=== PATIENT | female | born 1955 | race Caucasian/White ===

== ENCOUNTER 2016-10-06 12:53 | Inpatient (IN) ==
[2016-10-06] MEDS ORDERED: NALOXONE HCL 0.4 MG/ML VIAL IV PRN (14:41)
[2016-10-06] MEDS ORDERED: ACETAMINOPHEN 325 MG TABLET PO PRN (14:41)
[2016-10-06] MEDS ORDERED: HYDROcodone/APAP 5/325MG TABLET PO PRN (14:41)
[2016-10-06] MEDS ORDERED: ONDANSETRON 4 MG/2 ML VIAL IV PRN (14:41)
[2016-10-06] MEDS ORDERED: MAGNESIUM HYDROXIDE 30 ML ORAL.SUSP PO PRN (14:41)
[2016-10-06] MEDS ORDERED: ALBUTEROL SULFATE 2.5 MG/3 ML NEBULIZER NEB PRN (14:41)
[2016-10-06] MEDS ORDERED: VANCOMYCIN PER PHARMACY IV ONE (14:53)
--- NOTE | 2016-10-06 14:56 | Internal Med History&Physical ---
Medical - H&P: HPI Patient information: Note initiated : 10/06/16 at 2:56 pm Service Date, if different from initiated Date: [] Patient: Chaparrita Campos 61 y/o F admitted on 10/06/16 for Aspiration pneumonia and fever. History of present illness: Ms. Campos is a 61 year old female with a history of C4-C6 quadriplegia, sleep apnea, and COPD. She presented to the emergency room in [place], [place] with chest congestion and weakness yesterday.they note that she had a history of respiratory failure in June of 2016 with respiratory failure and pneumonia. She denies fever or chills or significant sputum production. she tells me that about 3 days ago she developed fever and chest congestion and cough at home. She presented to the emergency room negative for last apparently. She has been having chills and headache. She says her cough is mostly nonproductive but does sound moist, and she can feel her chest rattling. She does not feel particularly short of breath. She has noticed some increased abdominal gas lately but that she still has a bowel movement every 3 or 4 days. She otherwise denies new ear or eye symptoms, sore throat, chest pain or palpitations, abdominal pain, nausea or vomiting, diarrhea or constipation, or dysuria. She does have a suprapubic catheter in place.She has minimal sensation below her breasts. past medical history: C4 quadriplegia, BrownSicard syndrome cOPD Neurogenic bladder with suprapubic catheter next line history of chronic UTI History of obstructive sleep apnea History of anterior cervical fusion History of tobacco abuse current medications: from [facility]; Albuterol nebs every 4 hours, IV fluids, mag sulfate IV, bisacodyl, polyethylene glycol, vancomycin 1000 mgevery 12, Lovenox 40 mg every 24 hours, Levaquin 750 mg daily, Zofran every 4 hours when necessary Home medications: Advair 250/50 one inhalation twice a day azo urinary relief 200 mg twice a day Baclofen 2 mg by mouth twice a day Baclofen 350 g intrathecaldaily Flexeril 10 mg3 times a daywhen necessary Docusate sodium 100 mg by mouth daily when necessary constipation Fiber supplement daily Gabapentin 300 mg 3 times a day Multivitamin daily Oxybutynin 5 mg every 12 hours OxyContin ER 20 mg daily Oxycodone 10 mg every 6 hours Proventil 2 puffs every 4-6 hours when necessary Seroquel 25 mg daily at bedtime when necessary insomnia Senna 15 mg twice a day when necessary Valium 5 mg every 8 hours when necessary anxiety Venlafaxine 225 mg every morning Allergies:No known drug allergies. Family history:Mother quite young from uterine cancer. Father with sudden , probably cardiac . Social history: The patient lives in [facility] with her . She smokes one pack of cigarettes per day. she has been smoking on and off since the age of 17, but says she has quit for long periods ; She just resumed again about 10 years ago... She does not use alcohol. She does not use drugs. Medical - H&P: Meds Home Medications Medication Instructions Recorded Confirmed Type Gabapentin [Neurontin] 800 mg PO TID 10/06/16 10/06/16 History oxyCODONE 1 mg PO ONCE 10/06/16 10/06/16 History oxyCODONE [OxyCONTIN] 10 mg PO QIDP 10/06/16 10/06/16 History Allergies Allergy/AdvReac Type Severity Reaction Status Date / Time No Known Drug Allergies Allergy Unverified 10/06/16 14:11 Medical - H&P: Exam - Constitutional Vitals: Temp Pulse Resp BP Pulse Ox 99.8 F H 85 20 107/68 93 10/06/16 14:54 10/06/16 13:40 10/06/16 14:54 10/06/16 14:54 10/06/16 14:54 Exam: on exam, she is a well-developed well-nourished female in no acute distress. Head: Normocephalic, atraumatic. Eyes: PERRLA, EOMI, anicteric. Ears: TMs and canals are clear. Pharynx: Mucosa is normal in appearance. She is missing numerous teeth and has cavities. She notes these are due to chronic dry mouth syndrome. Neck:Supple, without lymphadenopathy, JVD, thyromegaly, or bruits. Cardiac exam:Regular rate and rhythm with normal S1 and S2, no murmurs, rubs, gallops are noted. Lungs: She has somewhat decreased breath sounds throughout, with bilateral scattered rhonchi, without significant wheezing. Abdomen: Is soft and nontender. Bowel sounds are active. There is a suprapubic catheter in place, draining clear yellow urine. Extremities: Show no significant edema, cyanosis, clubbing. Her left hip ischial area does have a small open area which is draining what appears to be purulent discharge onto the dressing. Neurologic: The patient is paraplegic. Otherwise she is alert and oriented, calm and cooperative. She has good use of her arms. Skin exam: Does not show any obvious rashes or other worrisome lesions, other than as noted above. Medical - H&P: Reslt - Labs CBC & Chem 7: 10/06/16 15:14 10/06/16 15:14 Labs: labs done in [place] :: CBC shows white blood cell count of 6.7 thousand, hemoglobin 8.8, hematocrit 27.9, platelet count 140,000Differential shows 84% granulocytes Chemistry panel was essentially normal Urinalysis showed pH of 6.5, 100 leukocytes, negative nitrites, 6-10 white blood cells, moderate bacteria X-ray of the pelvis shows a soft tissue irregularity over the left lateral hip consistent with deep decubitus ulcer, but without evidence of osteomyelitis. There is decreased bone mineral density. Chest x-ray, October 04: There is right hemithorax opacification, stable when compared with June 04, 2016. There isleft to right shift. Esophagram from June 05: Shows aspiration with swallowing. Mild dysmotility. Trace GERD. Medical - H&P: A/P (1) Aspiration pneumonia Current visit: Yes Status: Acute (2) Decubitus ulcer, hip, left, unstageable Current visit: Yes Status: Chronic (3) Chronic pain due to injury Current visit: Yes Status: Chronic (4) COPD (chronic obstructive pulmonary disease) Current visit: Yes Status: Chronic (5) Normocytic anemia Current visit: Yes Status: Chronic 31. This patient presents with chest congestion and cough, and chronically abnormal chest x-ray, with concerns for pneumonia. She has known issues of aspiration, so there is concern for aspiration pneumonia. -she is now admitted for IV antibiotics, oxygen, bronchodilators, pulmonary toilet. -we will cover her with Zosyn for typical organisms and anaerobes related to aspiration. #2. Left hip decubitus ulcer. -wound care consult. -advised vancomycin, pending culture results. 33. Recent hypokalemia and hypomagnesemia. -Recheck labs. #4. History of COPD and reactive airways disease. -Discontinue smoking. -Continue albuterol and ipratropium nebulizers. -Add steroids if needed. #5. Tobacco abuse.-counseled about discontinuation. #6. History of normocytic anemia. -Recheck labs. #7. CODE STATUS: #8. DVT prophylaxis: Subcutaneous heparin. so far today, approximately 60 minutes has been spent reviewing this patient's records, interviewing and examining her, and writing orders. Medical - H&P: Qual - Stroke Symptom Onset Unknown: No - VTE Deep Vein Thrombosis/Pulmonary Embolism Present on Admission: No
[2016-10-06] MEDS ORDERED: BACLOFEN IJ ONE (16:00)
[2016-10-06 16:21] LABS: ALT/SGPT 11 U/l (0-40); Albumin 3.2 gm/dL (3.2-5.2); Albumin/Globulin Ratio 1.2 (1.0-2.3); Alkaline Phosphatase 103 U/L (39-117); Blood Urea Nitrogen 6 mg/dl (6-20); C-Reactive Protein 13.7 mg/dl (0.0-0.8)
[2016-10-06] MEDS ORDERED: DOCUSATE SODIUM 100 MG CAPSULE PO PRN (16:21)
[2016-10-06] MEDS ORDERED: DIAZEPAM 5 MG TABLET PO PRN (16:25)
--- NOTE | 2016-10-06 16:26 | Operative Note ---
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 POSTOPERATIVE DIAGNOSIS: Spasticity secondary to quadriplegia. PROCEDURE: Refill [employer] intrathecal pump with baclofen. SURGEON: José Luis Braxton M.D. ANESTHESIA: Local only. DESCRIPTION OF PROCEDURE: The pump site was prepped with Betadine. Complete sterile field was used throughout. A 22-gauge Hernandez needle was placed through the central port and 0.5 mL of fluid was aspirated and discarded. Next, 40 mL of baclofen 0.5 mg/mm was injected into the pump. Next, telemetry was set to reflect a 40 mL reservoir volume, and she was continued to run on her same variable infusion pattern that was preset for a total of 83 mcg of baclofen q.24h. Her low reservoir alarm date is 05/22/17. LES:[email or web address] Job ID: [id number] Doc ID: [id number] José Luis Braxton MD
[2016-10-06 16:38] LABS: Basophils # (Auto) 0 K/mcL (0.0-0.3); Basophils % (Auto) 0.3 % (0.0-2.0); Eosinophils # (Auto) 0 K/mcL (0.0-0.7); Eosinophils % (Auto) 0.1 % (0.0-7.0); Granulocytes % (Auto) 73.1 % (38.0-78.0); Lymphocytes # (Auto) 0.8 K/mcL (1.5-4.8); Lymphocytes % (Auto) 20.4 % (15.5-49.0); Mean Cell Volume 91.1 fL (80.0-100.0); Mean Corpuscular HGB Conc 31.6 g/dL (31.0-36.0); Mean Corpuscular Hemoglobin 28.8 pg (26.0-34.0); Monocytes # (Auto) 0.2 K/mcL (0.1-0.9); Monocytes % (Auto) 6.1 % (1.0-9.0); Platelet Count 141 K/mcL (140-440); RBC 2.93 M/mcL (4.00-5.20); Red Cell Distribution Width 15.3 % (11.5-14.5)
[2016-10-06 16:54] LABS: Erythrocyte Sedimentation Rate 56 mm/hr (0-20)
[2016-10-06] MEDS: PIPERACILLIN SODIUM/TAZOBACTAM 3.375 GM in DEXTROSE 5% IN WATER 50 ML IV SCH ×2 (18:03→19:26)
[2016-10-06] MEDS: oxyCODONE HCL 5 MG TABLET PO PRN (19:00)
[2016-10-06] MEDS: IPRATROPIUM/ALBUTEROL 3 ML AMPUL.NEB NEB SCH (19:30)
[2016-10-06] MEDS ORDERED: QUEtiapine 25 MG TABLET PO PRN (21:00)
[2016-10-06] MEDS: VANCOMYCIN 1,000 MG in 0.9 % SODIUM CHLORIDE 250 ML IV SCH (21:06)
[2016-10-06] MEDS: POTASSIUM CHLORIDE 20 MEQ in 0.45 % SODIUM CHLORIDE 1,000 ML IV SCH (21:07)
[2016-10-06] MEDS: GABAPENTIN 300 MG CAPSULE PO SCH (21:07)
[2016-10-06] MEDS: HEPARIN 5,000 UNIT/ML VIAL SQ SCH (21:07)
[2016-10-06] MEDS: OXYBUTYNIN CHLORIDE 5 MG TABLET PO SCH (21:07)
[2016-10-06] MEDS: BACLOFEN 10 MG TABLET PO SCH (21:08)
[2016-10-06] MEDS: 0.9 % SODIUM CHLORIDE 10 ML SYRINGE IV SCH (22:28)
[2016-10-07] MEDS: PIPERACILLIN SODIUM/TAZOBACTAM 3.375 GM in DEXTROSE 5% IN WATER 50 ML IV SCH ×5 (00:14→23:40)
[2016-10-07] MEDS: IPRATROPIUM/ALBUTEROL 3 ML AMPUL.NEB NEB SCH ×4 (01:07→19:10)
[2016-10-07] MEDS: POTASSIUM CHLORIDE 20 MEQ in 0.45 % SODIUM CHLORIDE 1,000 ML IV SCH ×3 (05:32→22:17)
[2016-10-07] MEDS: 0.9 % SODIUM CHLORIDE 10 ML SYRINGE IV SCH ×4 (05:32→22:17)
[2016-10-07] MEDS: VANCOMYCIN 1,000 MG in 0.9 % SODIUM CHLORIDE 250 ML IV SCH ×2 (06:06→18:30)
[2016-10-07 06:45] LABS: ALT/SGPT 11 U/l (0-40); Albumin 3.6 gm/dL (3.2-5.2); Albumin/Globulin Ratio 1.2 (1.0-2.3); Alkaline Phosphatase 112 U/L (39-117); Bilirubin,Direct < 0.2 mg/dL (0.0-0.3); Blood Urea Nitrogen 4 mg/dl (6-20); Gamma Glutamyl Transpeptidase 83 U/L (5-36); Magnesium 1.9 mg/dL (1.6-2.5); Phosphorous 2.1 mg/dL (2.7-4.5); Uric Acid 2.4 mg/dL (2.5-8.0)
[2016-10-07 07:32] LABS: Basophils # (Auto) 0 K/mcL (0.0-0.3); Basophils % (Auto) 0.4 % (0.0-2.0); Eosinophils # (Auto) 0 K/mcL (0.0-0.7); Eosinophils % (Auto) 0.4 % (0.0-7.0); Lymphocytes # (Auto) 1.3 K/mcL (1.5-4.8); Lymphocytes % (Auto) 42.7 % (15.5-49.0); Mean Cell Volume 91.6 fL (80.0-100.0); Mean Corpuscular HGB Conc 31.6 g/dL (31.0-36.0); Mean Corpuscular Hemoglobin 28.9 pg (26.0-34.0); Monocytes # (Auto) 0.2 K/mcL (0.1-0.9); Monocytes % (Auto) 6.5 % (1.0-9.0); Platelet Count 141 K/mcL (140-440); RBC 3.36 M/mcL (4.00-5.20); Red Cell Distribution Width 15.6 % (11.5-14.5)
[2016-10-07] MEDS: oxyCODONE 20 MG TAB.ER.12H PO SCH (09:35)
[2016-10-07] MEDS: CYCLOBENZAPRINE 10 MG TABLET PO PRN (09:35)
[2016-10-07] MEDS: GABAPENTIN 300 MG CAPSULE PO SCH ×3 (09:36→20:52)
[2016-10-07] MEDS: VENLAFAXINE 75 MG CAP.XL.24H PO SCH (09:36)
[2016-10-07] MEDS: OXYBUTYNIN CHLORIDE 5 MG TABLET PO SCH ×2 (09:36→20:52)
[2016-10-07] MEDS: HEPARIN 5,000 UNIT/ML VIAL SQ SCH ×2 (09:37→20:52)
[2016-10-07] MEDS: PSYLLIUM HUSK 6 GM PACKET PO SCH (09:38)
--- NOTE | 2016-10-07 14:35 | Internal Med Progress Note ---
Medical - PN: Subj Patient information: Note initiated : 10/07/16 at 2:34 pm Service Date, if different from initiated Date: [] Patient: Chaparrita Campos 61 y/o F admitted on 10/06/16 for Aspiration pneumonia and fever. Chief Complaint: [] Interval history: October 06, 2016:History of present illness: Ms. Campos is a 61 year old female with a history of C4-C6 quadriplegia, sleep apnea, and COPD. She presented to the emergency room in [place], [place] with chest congestion and weakness yesterday.they note that she had a history of respiratory failure in June of 2016 with respiratory failure and pneumonia. She denies fever or chills or significant sputum production. she tells me that about 3 days ago she developed fever and chest congestion and cough at home. She presented to the emergency room negative for last apparently. She has been having chills and headache. She says her cough is mostly nonproductive but does sound moist, and she can feel her chest rattling. She does not feel particularly short of breath. She has noticed some increased abdominal gas lately but that she still has a bowel movement every 3 or 4 days. She otherwise denies new ear or eye symptoms, sore throat, chest pain or palpitations, abdominal pain, nausea or vomiting, diarrhea or constipation, or dysuria. She does have a suprapubic catheter in place.She has minimal sensation below her breasts. she was originally admitted in [facility], but sent here because her baclofen pump was getting ready to run out. October [id number]: today, the patient thinks she is doing better. She still has a fairly loosecough but denies current fever or chills. She is still requiring oxygen to maintain her O2 saturations. She tells me she does have oxygen at home , but does not have a nebulizer machine. She is wondering when she can go back home. Otherwise she denies chest pain or palpitations, sore throat abdominal pain nausea or vomiting, or diarrhea. - Constitutional Vitals: Vital Signs Temp Pulse Resp BP Pulse Ox 97.9 F 76 16 101/37 92 10/07/16 12:54 10/07/16 13:45 10/07/16 13:45 10/07/16 12:54 10/07/16 13:42 Period Temp Pulse Resp BP Sys/Caballero Pulse Ox Last 24 Hr 97.9 F-99.8 F 67-86 16-20 101-126/37-78 91-94 Intake and Output 10/07/16 10/07/16 10/07/16 05:59 13:59 21:59 Intake Total 2350 / 2350 1170 / 1170 800 / 800 Output Total 4250 / 4250 Balance -1900 / -1900 1170 / 1170 800 / 800 Weight 169 lb Patient Weight 10/08/16 05:59 Weight 169 lb Intake & Output: Intake & Output 10/07/16 10/07/16 10/07/16 05:59 13:59 21:59 Intake Total 2350 / 2350 1170 / 1170 800 / 800 Output Total 4250 / 4250 Balance -1900 / -1900 1170 / 1170 800 / 800 Weight 169 lb Intake: IV 300 / 300 1060 / 1060 Dextrose 5% in Water 50 50 / 50 50 / 50 ml @ 100 mls/hr IV Q6 TONY with Zosyn 3.375 gm Rx#: [id number] Potassium Chloride 20 Meq 1010 / 1010 In Sodium Chloride 0.45% 1,000 ml @ 100 mls/hr IV .Q10H6M TONY Rx#: [id number] Sodium Chloride 0.9% 250 250 / 250 ml @ 250 mls/hr IV Q12H TONY with Vancomycin 1,000 mg Rx#:[id number] Oral 2050 / 2050 110 / 110 800 / 800 Output: Urine Catheter Amount 4250 / 4250 Other: Meal Lunch Percent of Meal Consumed 50% Feeding Ability Independent # Bowel Movements 1 Exam: n exam, she is a well-developed well-nourished woman. She hasn't no acute distress. francis is supple without obvious lymphadenopathy or JVD. cardiac exam shows regular rate and rhythm. Lungs have somewhat decreased breath sounds, but there are crackles and wheezes noted mainly in the right base, and otherwise her breath sounds are distant and coarse throughout. Abdomen is soft and nontender. Extremities show no edema. Medical - PN: Obj Da - Labs CBC & Chem 7: 10/07/16 04:25 10/07/16 04:25 Labs: Abnormal Lab Results 10/07/16 10/07/16 10/06/16 04:25 04:25 15:14 WBC 3.1 L RBC 3.36 L Hgb 9.7 L Hct 30.8 L RDW 15.6 H Gran # 1.6 L Lymph # 1.3 L ESR Potassium 3.2 L BUN 4 L Creatinine 0.4 L 0.4 L Uric Acid 2.4 L Calcium 8.5 L 8.0 L Phosphorus 2.1 L GGT 83 H Lactate Dehydrogenase 268 H C-Reactive Protein 13.7 H Total Protein 5.8 L 10/06/16 15:14 WBC 4.1 L RBC 2.93 L Hgb 8.4 L Hct 26.7 L RDW 15.3 H Gran # Lymph # 0.8 L ESR 56 H Potassium BUN Creatinine Uric Acid Calcium Phosphorus GGT Lactate Dehydrogenase C-Reactive Protein Total Protein labs done in [place] :: CBC shows white blood cell count of 6.7 thousand, hemoglobin 8.8, hematocrit 27.9, platelet count 140,000Differential shows 84% granulocytes Chemistry panel was essentially normal Urinalysis showed pH of 6.5, 100 leukocytes, negative nitrites, 6-10 white blood cells, moderate bacteria X-ray of the pelvis shows a soft tissue irregularity over the left lateral hip consistent with deep decubitus ulcer, but without evidence of osteomyelitis. There is decreased bone mineral density. Chest x-ray, October 04: There is right hemithorax opacification, stable when compared with June 04, 2016. There is left to right shift. Esophagram from June 05: Shows aspiration with swallowing. Mild dysmotility. Trace GERD. Meds: Medications Acetaminophen (Tylenol) 650 mg PO Q6HP PRN PRN Reason: PAIN/FEVER > 101 Acetaminophen/Hydrocodone Bitart ([place] 5/325mg) 1 tab PO Q4HP PRN PRN Reason: Pain Albuterol Sulfate (Ventolin) 2.5 mg NEB Q2HP PRN PRN Reason: Shortness Of Breath Albuterol/Ipratropium (Duoneb) 3 ml NEB Q6HRT [facility] Last Admin: 10/07/16 13:40 Dose: 3 ml Baclofen (Lioresal) 50 mg PO TID [facility] Last Admin: 10/06/16 21:08 Dose: 50 mg Cyclobenzaprine HCl (Flexeril) 10 mg PO TID PRN PRN Reason: Muscle Spasm Last Admin: 10/07/16 09:35 Dose: 10 mg Diazepam (Valium) 5 mg PO TIDP PRN PRN Reason: Muscle Spasm Docusate Sodium (Colace) 100 mg PO BID PRN PRN Reason: Constipation Gabapentin (Neurontin) 300 mg PO TID [facility] Last Admin: 10/07/16 09:36 Dose: 300 mg Heparin Sodium (Porcine) (Heparin) 5,000 unit SQ Q12 [facility] Last Admin: 10/07/16 09:37 Dose: 5,000 unit Piperacillin Sod/Tazobactam (Sod 3.375 gm/ Dextrose) 50 mls @ 100 mls/hr IV Q6 [facility] Last Admin: 10/07/16 12:44 Dose: 100 mls/hr Potassium Chloride 20 meq/ (Sodium Chloride) 1,010 mls @ 100 mls/hr IV .Q10H6M [facility] Last Admin: 10/07/16 12:36 Dose: 100 mls/hr Vancomycin HCl 1,000 mg/ (Sodium Chloride) 250 mls @ 250 mls/hr IV Q12H [facility] Last Admin: 10/07/16 06:06 Dose: 250 mls/hr Magnesium Hydroxide (Milk Of Magnesia) 30 ml PO DAILYP PRN PRN Reason: Constipation Naloxone HCl (Narcan) 0.1 mg IV Q2MIN PRN PRN Reason: Opiate Reversal Ondansetron HCl (Zofran) 4 mg IV Q6HP PRN PRN Reason: Nausea And Vomiting Oxybutynin Chloride (Ditropan) 5 mg PO BID [facility] Last Admin: 10/07/16 09:36 Dose: 5 mg Oxycodone HCl (Oxycontin) 20 mg PO DAILY [facility] Last Admin: 10/07/16 09:35 Dose: 20 mg Oxycodone HCl (Roxicodone) 10 mg PO Q6HP PRN PRN Reason: Pain Last Admin: 10/06/16 19:00 Dose: 10 mg Psyllium Hydrophilic Mucilloid (Metamucil) 6 gm PO DAILY [facility] Last Admin: 10/07/16 09:38 Dose: Not Given Quetiapine Fumarate (Seroquel) 25 mg PO HS PRN PRN Reason: Sleep Sodium Chloride (Saline Flush) 10 ml IV Q8 [facility] Last Admin: 10/07/16 05:32 Dose: Not Given Venlafaxine HCl (Effexor Xr) 225 mg PO DAILY TONY Last Admin: 10/07/16 09:36 Dose: 225 mg Medical - PN: A/P - Time Spent With Patient Total time spent is greater than 50% in coordination of care (as documented) at patient's floor/unit and/or counseling patient: (1) Aspiration pneumonia Status: Acute Current Visit: Yes (2) Decubitus ulcer, hip, left, unstageable Status: Chronic Current Visit: Yes (3) Chronic pain due to injury Status: Chronic Current Visit: Yes (4) COPD (chronic obstructive pulmonary disease) Status: Chronic Current Visit: Yes (5) Normocytic anemia Status: Chronic Current Visit: Yes - Narrative A/P Narrative: Current visit: Yes Status: Chronic #1. This patient presents with chest congestion and cough, and chronically abnormal chest x-ray, with concerns for pneumonia. She has known issues of aspiration, so there is concern for aspiration pneumonia. --she is now admitted for IV antibiotics, oxygen, bronchodilators, pulmonary toilet. -we will cover her with Zosyn for typical organisms and anaerobes related to aspiration. -clinically she is improving, but still seems to require oxygen and nebulizer treatment. Her CBC indicates that she is on the neutropenic side, for uncertain reasons. She still has a low-grade temperature this morning. -We'll see how she is doing tomorrow. If she seems to be showing progress, we could consider sending her home with nebulizer treatments, oxygen, and oral antibiotics. #2. Left hip decubitus ulcer. -wound care consult. -advised vancomycin, pending culture results. #3. Recent hypokalemia and hypomagnesemia. resolved.. #4. History of COPD and reactive airways disease. -Discontinue smoking. -Continue albuterol and ipratropium nebulizers. -Add steroids if needed. #5. Tobacco abuse.-counseled about discontinuation. #6. History of normocytic anemia. -Recheck labs. #7. CODE STATUS: Limited code.she does not wish to be intubated. #8. DVT prophylaxis: Subcutaneous heparin. Approximately 30 minutes was spent today, reviewing test results, interviewing and examining her, exploring options for discharge treatment as well as travel home, and writing orders. Medical - PN: Qual - Stroke Symptom Onset Unknown: No - VTE Deep Vein Thrombosis/Pulmonary Embolism Present on Admission: No
[2016-10-07] MEDS: BACLOFEN 10 MG TABLET PO SCH ×3 (14:39→20:52)
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
[2016-10-07] MEDS: oxyCODONE HCL 5 MG TABLET PO PRN (17:48)
[2016-10-08] MEDS: IPRATROPIUM/ALBUTEROL 3 ML AMPUL.NEB NEB SCH ×5 (00:47→19:29)
[2016-10-08] MEDS: POTASSIUM CHLORIDE 20 MEQ in 0.45 % SODIUM CHLORIDE 1,000 ML IV SCH ×4 (02:25→16:39)
[2016-10-08] MEDS: 0.9 % SODIUM CHLORIDE 10 ML SYRINGE IV SCH ×3 (05:39→20:26)
[2016-10-08] MEDS: PIPERACILLIN SODIUM/TAZOBACTAM 3.375 GM in DEXTROSE 5% IN WATER 50 ML IV SCH ×4 (05:47→23:53)
[2016-10-08 06:04] LABS: Basophils # (Auto) 0 K/mcL (0.0-0.3); Basophils % (Auto) 0.4 % (0.0-2.0); Eosinophils # (Auto) 0 K/mcL (0.0-0.7); Eosinophils % (Auto) 1.2 % (0.0-7.0); Granulocytes % (Auto) 50.4 % (38.0-78.0); Lymphocytes # (Auto) 1.2 K/mcL (1.5-4.8); Lymphocytes % (Auto) 39.5 % (15.5-49.0); Mean Cell Volume 91.1 fL (80.0-100.0); Mean Corpuscular HGB Conc 31.2 g/dL (31.0-36.0); Mean Corpuscular Hemoglobin 28.4 pg (26.0-34.0); Monocytes # (Auto) 0.3 K/mcL (0.1-0.9); Monocytes % (Auto) 8.5 % (1.0-9.0); Platelet Count 148 K/mcL (140-440); RBC 3.06 M/mcL (4.00-5.20); Red Cell Distribution Width 15.6 % (11.5-14.5)
[2016-10-08 06:49] LABS: ALT/SGPT 12 U/l (0-40); Albumin 3.2 gm/dL (3.2-5.2); Albumin/Globulin Ratio 1.1 (1.0-2.3); Alkaline Phosphatase 90 U/L (39-117); Bilirubin,Direct < 0.2 mg/dL (0.0-0.3); Blood Urea Nitrogen 3 mg/dl (6-20); Gamma Glutamyl Transpeptidase 69 U/L (5-36); Magnesium 1.7 mg/dL (1.6-2.5); Phosphorous 2.3 mg/dL (2.7-4.5); Uric Acid 1.9 mg/dL (2.5-8.0)
[2016-10-08] MEDS: VANCOMYCIN 1,000 MG in 0.9 % SODIUM CHLORIDE 250 ML IV SCH ×2 (06:58→18:59)
[2016-10-08] MEDS: GABAPENTIN 300 MG CAPSULE PO SCH ×4 (09:00→20:22)
[2016-10-08] MEDS: oxyCODONE 20 MG TAB.ER.12H PO SCH ×2 (09:00→11:35)
[2016-10-08] MEDS: BACLOFEN 10 MG TABLET PO SCH ×4 (09:00→20:22)
[2016-10-08] MEDS: PSYLLIUM HUSK 6 GM PACKET PO SCH (09:59)
[2016-10-08] MEDS: DOCUSATE SODIUM 100 MG CAPSULE PO PRN (11:36)
[2016-10-08] MEDS: VENLAFAXINE 75 MG CAP.XL.24H PO SCH (11:36)
[2016-10-08] MEDS: HEPARIN 5,000 UNIT/ML VIAL SQ SCH ×2 (11:37→20:22)
[2016-10-08] MEDS: OXYBUTYNIN CHLORIDE 5 MG TABLET PO SCH ×2 (11:37→20:22)
--- NOTE | 2016-10-08 11:55 | Internal Med Progress Note ---
Medical - PN: Subj Patient information: Note initiated : 10/08/16 at 11:55 am Service Date, if different from initiated Date: [] Patient: Chaparrita Campos 61 y/o F admitted on 10/06/16 for Aspiration pneumonia and fever. Chief Complaint: [] Interval history: October 06, 2016:History of present illness: Ms. Campos is a 61 year old female with a history of C4-C6 quadriplegia, sleep apnea, and COPD. She presented to the emergency room in [place], [place] with chest congestion and weakness yesterday.they note that she had a history of respiratory failure in June of 2016 with respiratory failure and pneumonia. She denies fever or chills or significant sputum production. she tells me that about 3 days ago she developed fever and chest congestion and cough at home. She presented to the emergency room negative for last apparently. She has been having chills and headache. She says her cough is mostly nonproductive but does sound moist, and she can feel her chest rattling. She does not feel particularly short of breath. She has noticed some increased abdominal gas lately but that she still has a bowel movement every 3 or 4 days. She otherwise denies new ear or eye symptoms, sore throat, chest pain or palpitations, abdominal pain, nausea or vomiting, diarrhea or constipation, or dysuria. She does have a suprapubic catheter in place.She has minimal sensation below her breasts. she was originally admitted in [facility], but sent here because her baclofen pump was getting ready to run out. October [id number]: today, the patient thinks she is doing better. She still has a fairly loosecough but denies current fever or chills. She is still requiring oxygen to maintain her O2 saturations. She tells me she does have oxygen at home , but does not have a nebulizer machine. She is wondering when she can go back home. Otherwise she denies chest pain or palpitations, sore throat abdominal pain nausea or vomiting, or diarrhea. October 08, 2016: during the night, the nurses say the patient had an episode where she was very difficult to arouse, and seemed to be drunk. She was calling out and pulled out her IV etc. She eventually settled down, but was quite groggy this morning. Her nurse and I went over her med list again with her today, and apparently her had text at her what he thought was her current list. Yesterday they had indicated she took baclofen 50 mg twice a day to 3 times a day but today's list says she takes baclofen 20 mg 5 times a day so we have probably giving her more than her usual. the patient initially stated she really would like to go home today,but does continue to cough and does not have a home nebulizer. Since we are not 100% certain that her confusion episode last night was related to baclofen, in addition to the fact that her lungs are not cleared yet, we all agreed it might be better for her to stay another day. otherwise, she denies fever or chills chest pain or palpitations. She continues to have a loose wet cough, which is not very productive. She does not feel particularly short of breath. She denies abdominal pain, nausea or vomiting or diarrhea. Suprapubic catheter continues to drain clear yellow urine. - Constitutional Vitals: Vital Signs Temp Pulse Resp BP Pulse Ox 101 F H 93 H 24 137/89 90 10/08/16 11:35 10/08/16 11:17 10/08/16 11:17 10/08/16 11:17 10/08/16 11:22 Period Temp Pulse Resp BP Sys/[place] Pulse Ox Last 24 Hr 97.9 F-101.5 F 71-93 16-24 94-137/37-89 90-96 Intake and Output 10/07/16 10/08/16 10/08/16 21:59 05:59 13:59 Intake Total 1999 450 / 450 Output Total 3500 / 3500 3250 / 3250 1974 Balance -1500 / -1500 -1230 / -1230 -1525 / -1525 Weight 170 lb Intake & Output: Intake & Output 10/07/16 10/08/16 10/08/16 21:59 05:59 13:59 Intake Total 1999 450 / 450 Output Total 3500 / 3500 3250 / 3250 1974 Balance -1500 / -1500 -1230 / -1230 -1525 / -1525 Weight 170 lb Intake: IV 300 / 300 1060 / 1060 250 / 250 Dextrose 5% in Water 50 50 / 50 50 / 50 ml @ 100 mls/hr IV Q6 TONY with Zosyn 3.375 gm Rx#: [id number] Potassium Chloride 20 Meq 1010 / 1010 In Sodium Chloride 0.45% 1,000 ml @ 100 mls/hr IV .Q10H6M TONY Rx#: [id number] Sodium Chloride 0.9% 250 250 / 250 250 / 250 ml @ 250 mls/hr IV Q12H TONY with Vancomycin 1,000 mg Rx#:[id number] Oral 1700 / 1700 960 / 960 200 / 200 Output: Urine Catheter Amount 3500 / 3500 3250 / 3250 1974 Other: Meal Dinner Breakfast Percent of Meal Consumed 50% 50% Feeding Ability Independent Exam: Neck is supple without obvious lymphadenopathy or JVD. cardiac exam shows regular rate and rhythm. Lungs have somewhat decreased breath sounds, but there are crackles and wheezes noted bilaterally today, and otherwise her breath sounds are coarse throughout. Abdomen is soft and nontender. Extremities show no edema. Medical - PN: Obj Da - Labs CBC & Chem 7: 10/08/16 04:40 10/08/16 04:40 Labs: Abnormal Lab Results 10/08/16 10/08/16 10/07/16 04:40 04:40 04:25 WBC 3.1 L 3.1 L RBC 3.06 L 3.36 L Hgb 8.7 L 9.7 L Hct 27.9 L 30.8 L RDW 15.6 H 15.6 H Gran # 1.6 L 1.6 L Lymph # 1.2 L 1.3 L ESR Potassium BUN 3 L Creatinine 0.4 L Uric Acid 1.9 L Calcium Phosphorus 2.3 L GGT 69 H Lactate Dehydrogenase C-Reactive Protein Total Protein 10/07/16 10/06/16 10/06/16 04:25 15:14 15:14 WBC 4.1 L RBC 2.93 L Hgb 8.4 L Hct 26.7 L RDW 15.3 H Gran # Lymph # 0.8 L ESR 56 H Potassium 3.2 L BUN 4 L Creatinine 0.4 L 0.4 L Uric Acid 2.4 L Calcium 8.5 L 8.0 L Phosphorus 2.1 L GGT 83 H Lactate Dehydrogenase 268 H C-Reactive Protein 13.7 H Total Protein 5.8 L labs done in [place] :: CBC shows white blood cell count of 6.7 thousand, hemoglobin 8.8, hematocrit 27.9, platelet count 140,000Differential shows 84% granulocytes Chemistry panel was essentially normal Urinalysis showed pH of 6.5, 100 leukocytes, negative nitrites, 6-10 white blood cells, moderate bacteria X-ray of the pelvis shows a soft tissue irregularity over the left lateral hip consistent with deep decubitus ulcer, but without evidence of osteomyelitis. There is decreased bone mineral density. Chest x-ray, October 04: There is right hemithorax opacification, stable when compared with June 04, 2016. There is left to right shift. Esophagram from June 05: Shows aspiration with swallowing. Mild dysmotility. Trace GERD. Meds: Medications Acetaminophen (Tylenol) 650 mg PO Q6HP PRN PRN Reason: PAIN/FEVER > 101 Last Admin: 10/08/16 11:35 Dose: 650 mg Acetaminophen/Hydrocodone Bitart ([place] 5/325mg) 1 tab PO Q4HP PRN PRN Reason: Pain Albuterol Sulfate (Ventolin) 2.5 mg NEB Q2HP PRN PRN Reason: Shortness Of Breath Albuterol/Ipratropium (Duoneb) 3 ml NEB Q6HRT COUNT INCLUDES THE [facility] Last Admin: 10/08/16 07:34 Dose: 3 ml Baclofen (Lioresal) 50 mg PO TID COUNT INCLUDES THE [facility] Last Admin: 10/08/16 09:00 Dose: Not Given Cyclobenzaprine HCl (Flexeril) 10 mg PO TID PRN PRN Reason: Muscle Spasm Last Admin: 10/07/16 09:35 Dose: 10 mg Diazepam (Valium) 5 mg PO TIDP PRN PRN Reason: Muscle Spasm Docusate Sodium (Colace) 100 mg PO BID PRN PRN Reason: Constipation Last Admin: 10/08/16 11:36 Dose: 100 mg Gabapentin (Neurontin) 300 mg PO TID COUNT INCLUDES THE [facility] Last Admin: 10/08/16 11:37 Dose: 300 mg Heparin Sodium (Porcine) (Heparin) 5,000 unit SQ Q12 COUNT INCLUDES THE [facility] Last Admin: 10/08/16 11:37 Dose: 5,000 unit Piperacillin Sod/Tazobactam (Sod 3.375 gm/ Dextrose) 50 mls @ 100 mls/hr IV Q6 COUNT INCLUDES THE [facility] Last Admin: 10/08/16 05:47 Dose: 100 mls/hr Potassium Chloride 20 meq/ (Sodium Chloride) 1,010 mls @ 100 mls/hr IV .Q10H6M COUNT INCLUDES THE [facility] Last Admin: 10/08/16 09:00 Dose: Not Given Vancomycin HCl 1,000 mg/ (Sodium Chloride) 250 mls @ 250 mls/hr IV Q12H COUNT INCLUDES THE [facility] Last Infusion: 10/08/16 09:01 Dose: Infused Magnesium Hydroxide (Milk Of Magnesia) 30 ml PO DAILYP PRN PRN Reason: Constipation Naloxone HCl (Narcan) 0.1 mg IV Q2MIN PRN PRN Reason: Opiate Reversal Ondansetron HCl (Zofran) 4 mg IV Q6HP PRN PRN Reason: Nausea And Vomiting Oxybutynin Chloride (Ditropan) 5 mg PO BID COUNT INCLUDES THE [facility] Last Admin: 10/08/16 11:37 Dose: 5 mg Oxycodone HCl (Oxycontin) 20 mg PO DAILY COUNT INCLUDES THE [facility] Last Admin: 10/08/16 11:35 Dose: 20 mg Oxycodone HCl (Roxicodone) 10 mg PO Q6HP PRN PRN Reason: Pain Last Admin: 10/07/16 17:48 Dose: 10 mg Psyllium Hydrophilic Mucilloid (Metamucil) 6 gm PO DAILY COUNT INCLUDES THE [facility] Last Admin: 10/08/16 09:59 Dose: Not Given Quetiapine Fumarate (Seroquel) 25 mg PO HS PRN PRN Reason: Sleep Sodium Chloride (Saline Flush) 10 ml IV Q8 COUNT INCLUDES THE [facility] Last Admin: 10/08/16 05:39 Dose: Not Given Venlafaxine HCl (Effexor Xr) 225 mg PO DAILY COUNT INCLUDES THE [facility] Last Admin: 10/08/16 11:36 Dose: 225 mg Medical - PN: A/P - Time Spent With Patient Total time spent is greater than 50% in coordination of care (as documented) at patient's floor/unit and/or counseling patient: (1) Aspiration pneumonia Status: Acute Current Visit: Yes (2) Decubitus ulcer, hip, left, unstageable Status: Chronic Current Visit: Yes (3) Chronic pain due to injury Status: Chronic Current Visit: Yes (4) COPD (chronic obstructive pulmonary disease) Status: Chronic Current Visit: Yes (5) Normocytic anemia Status: Chronic Current Visit: Yes - Narrative A/P Narrative: #1. This patient presents with chest congestion and cough, and chronically abnormal chest x-ray, with concerns for pneumonia. She has known issues of aspiration, so there is concern for aspiration pneumonia. --she is now admitted for IV antibiotics, oxygen, bronchodilators, pulmonary toilet. -we will cover her with Zosyn for typical organisms and anaerobes related to aspiration. -clinically she is improving, but still seems to require oxygen and nebulizer treatment. Her CBC indicates that she is on the neutropenic side, for uncertain reasons. She has a fever again this afternoon. -she may need a swallow eval to try to ascertain if she has chronic aspiration. I will recheck a chest x-ray today, to compare to the one that she had over in [facility]. continue Zosyn and vancomycin. -We'll see how she is doing tomorrow. If she seems to be showing progress, we could consider sending her home with nebulizer treatments, oxygen, and oral antibiotics. #2. Left hip decubitus ulcer. -wound care consult. -advised vancomycin, pending culture results. Gram stain so far does not show anything exciting. #3. Recent hypokalemia and hypomagnesemia. resolved.. #4. History of COPD and reactive airways disease. -Discontinue smoking. -Continue albuterol and ipratropium nebulizers. -Add steroids if needed. #5. Tobacco abuse.-counseled about discontinuation. #6. History of normocytic anemia. -Recheck labs. #7. CODE STATUS: Limited code.she does not wish to be intubated. #8. DVT prophylaxis: Subcutaneous heparin. 39. Neurologic. the patient seems confused and somewhat somnolent during the night We are thinking, after reviewing her home medication list, but she is getting more baclofen than she is used to. I will go to her home regimen, which is baclofen 20 mg 5 times a day, and the nurses know to hold that if she seems oversedated. It does appear that we have her OxyContin and oxycodone dose is correct. Continue to monitor neurologic status. Approximately 30 minutes was spent today, reviewing test results, interviewing and examining her, exploring options for discharge treatment as well as travel home, and writing orders. Medical - PN: Qual - Stroke Symptom Onset Unknown: No - VTE Deep Vein Thrombosis/Pulmonary Embolism Present on Admission: No
--- NOTE | 2016-10-08 14:33 | Event Note ---
I assumed service this afternoon for this patient CXR was needed to be followed up. X ray chest image reviwed by me. Shows significant consolidation in the right lung. rotated film. X ray shows effusion. Pt febrile still On zosyn and vancomycin Get CT chest to evaluate for effusion/ empyema, Plan of care discussed with the patient.
[2016-10-08] MEDS: oxyCODONE HCL 5 MG TABLET PO PRN (14:48)
--- NOTE | 2016-10-08 19:09 | XRay Report ---
CLINICAL INFORMATION: Follow pneumonia - fever COMPARISON: None. FINDINGS: There is subtotal opacification of the entire right thorax with marked volume loss featuring [id number] cardiomediastinal shift. The left lung is well expanded but there is a moderate sized vague infiltrate in the left upper lobe. Lung volumes are also elevated suggesting COPD. Moderate right pleural effusion or fibrosis is noted IMPRESSION: Opacification of the right thorax with marked associated volume loss. This is typically indicative of atelectasis - follow-up chest CT to be performed. Moderate sized vague left upper lobe infiltrate Underlying COPD Interpreted and Authenticated by: Taras Escobra 10/08/16
--- NOTE | 2016-10-08 20:15 | Cat Scan Report ---
CLINICAL INFORMATION: Chest pain evaluate for empyema COMPARISON: None TECHNIQUE: 2.5 mm axial slices were obtained from the lung apices through the bases without intravenous contrast. Sagittal, coronal and axial reformatted images were processed and reviewed at bone, lung and soft tissue windows. 7 mm axial MIP images were also reconstructed. FINDINGS: Pulmonary point windows shows moderate overall loss of right lung volume evidence by rightward shift cardiomediastinal and elevation of right lung diaphragm. There is a 4 cm right hilar mass which encases and narrows both the right upper and right middle lobe bronchi resulting in subtotal atelectasis. A large bandlike region of pleural parenchymal fibrosis extends over most of the posterior lateral right upper lobe spanning 11 cm. Higher order right upper and middle lobe bronchi are trapped within the peripheral fibrosis. There is also an 8 cm sheet like region of pleural parenchymal fibrosis in the posterior lateral right lower lobe which also tethers the higher order bronchi. A moderate sized patchy groundglass infiltrate is seen throughout the left upper lobe with a smaller groundglass infiltrate scattered throughout the left lower lobe. Small left pleural effusion appreciated. There is moderate underlying centrilobular emphysema featuring elevated lung volumes, chronic bronchitis and bullae in the upper lobe regions. Mediastinal windows show the heart to be mildly enlarged with a small pericardial effusion. The noncontrasted thoracic aorta is normal. The central pulmonary arteries are enlarged - the main pulmonary diameter 3.8 cm suggesting pulmonary hypertension related to COPD and chronic lung disease. Few mildly enlarged lymph nodes are noted in the perihilar region and the upper mediastinum ranging up to 12 mm. No osseous abnormalities. Spinal cord stimulator wires in the dorsal epidural space and midthoracic spine at approximately T4. No wire breakage. Images should the abdomen show scattered simple cysts in the liver ranging up to 4 cm in the right hepatic lobe. IMPRESSION: 1. Moderate overall right lung volume loss evidenced by reduction in size, rightward cardiomediastinal silhouette shift and elevation of the right diaphragm. The etiology for right lung volume loss may be multifactorial: A 4 cm right hilar mass partially obstructs the right upper and middle lobe bronchi resulting in partial atelectasis. This mass might represent malignancy - bronchoscopy suggested. In addition, there are large sheet like regions of pleural parenchymal fibrosis in the posterior lateral right upper, middle and lower lobes which entrap higher order bronchi and restrict lung expansion.. 2. If the patient had a prior right hemothorax or empyema, this could result in this chronic fibrotic stigmata in the pleural space 3. Moderate sized patchy groundglass infiltrate throughout the left upper lobe with small infiltrate in the left lower lobe. Small left pleural effusion. 4. Moderate underlying centrilobular emphysema. Large central pulmonary arteries suggests associated pulmonary hypertension 5. Small pericardial effusion Interpreted and Authenticated by: Taras Escobar 10/08/16
[2016-10-09] MEDS: POTASSIUM CHLORIDE 20 MEQ in 0.45 % SODIUM CHLORIDE 1,000 ML IV SCH (01:58)
[2016-10-09] MEDS: IPRATROPIUM/ALBUTEROL 3 ML AMPUL.NEB NEB SCH ×4 (02:01→19:16)
[2016-10-09] MEDS: PIPERACILLIN SODIUM/TAZOBACTAM 3.375 GM in DEXTROSE 5% IN WATER 50 ML IV SCH ×3 (05:28→17:32)
[2016-10-09] MEDS: 0.9 % SODIUM CHLORIDE 10 ML SYRINGE IV SCH ×3 (05:29→22:04)
[2016-10-09] MEDS ORDERED: POTASSIUM CHLORIDE 20 MEQ/10 ML VIAL IV ONE (05:29)
[2016-10-09] MEDS: VANCOMYCIN 1,000 MG in 0.9 % SODIUM CHLORIDE 250 ML IV SCH ×2 (06:06→18:16)
[2016-10-09 06:14] LABS: Basophils # (Auto) 0 K/mcL (0.0-0.3); Basophils % (Auto) 0.4 % (0.0-2.0); Eosinophils # (Auto) 0.1 K/mcL (0.0-0.7); Eosinophils % (Auto) 3.2 % (0.0-7.0); Granulocytes % (Auto) 35.4 % (38.0-78.0); Lymphocytes # (Auto) 1.5 K/mcL (1.5-4.8); Lymphocytes % (Auto) 52.8 % (15.5-49.0); Mean Corpuscular HGB Conc 31.3 g/dL (31.0-36.0); Mean Corpuscular Hemoglobin 28.5 pg (26.0-34.0); Monocytes # (Auto) 0.2 K/mcL (0.1-0.9); Monocytes % (Auto) 8.2 % (1.0-9.0); Platelet Count 133 K/mcL (140-440); RBC 2.86 M/mcL (4.00-5.20); Red Cell Distribution Width 15.9 % (11.5-14.5)
[2016-10-09 06:53] LABS: ALT/SGPT 12 U/l (0-40); Albumin 2.8 gm/dL (3.2-5.2); Alkaline Phosphatase 83 U/L (39-117); Bilirubin,Direct < 0.2 mg/dL (0.0-0.3); Blood Urea Nitrogen 2 mg/dl (6-20); Gamma Glutamyl Transpeptidase 68 U/L (5-36); Magnesium 1.8 mg/dL (1.6-2.5); Phosphorous 3.3 mg/dL (2.7-4.5); Uric Acid 1.9 mg/dL (2.5-8.0)
[2016-10-09] MEDS: GABAPENTIN 300 MG CAPSULE PO SCH ×3 (09:42→20:54)
[2016-10-09] MEDS: CYCLOBENZAPRINE 10 MG TABLET PO PRN (09:42)
[2016-10-09] MEDS: OXYBUTYNIN CHLORIDE 5 MG TABLET PO SCH ×2 (09:42→20:54)
[2016-10-09] MEDS: DOCUSATE SODIUM 100 MG CAPSULE PO PRN (09:42)
[2016-10-09] MEDS: VENLAFAXINE 75 MG CAP.XL.24H PO SCH (09:42)
[2016-10-09] MEDS: HEPARIN 5,000 UNIT/ML VIAL SQ SCH ×2 (09:43→20:54)
[2016-10-09] MEDS: oxyCODONE 20 MG TAB.ER.12H PO SCH (09:43)
[2016-10-09] MEDS: PSYLLIUM HUSK 6 GM PACKET PO SCH (09:45)
[2016-10-09] MEDS: BACLOFEN 10 MG TABLET PO SCH ×5 (09:45→20:54)
[2016-10-09] MEDS: POTASSIUM CHLORIDE 20 MEQ PACKET PO SCH ×2 (09:46→20:54)
--- NOTE | 2016-10-09 13:47 | Discharge Summary ---
Medical - DS: Prov Patient information: Note initiated : 10/09/16 at 1:45 pm Service Date, if different from initiated Date: [] Patient: Chaparrita Campos 61 y/o F admitted on 10/06/16 for Aspiration Pneumonia and Fever. Chief Complaint: [] Date of admission: 10/06/16 13:40 Discharge date: 10/10/16 Primary care physician: [f_Reg Prim Care Provider] Admitting clinician: Cate Mcgregor Consults: 10/06/16 14:49 Consult to Physician [CONS] Routine Comment: draining hip ulcer Consulting Provider: Jaxon Kiser Reason For Exam: Physician to Consult Discharging clinician: [facility] - DS: Meds - Discharge Medications Prescriptions: Amoxicillin/Potassium Clav [Augmentin] 875 mg PO Q12H #10 tablet Active and Home Medications: Home Medications Fluticasone/Salmeterol [Advair 250-50 Diskus] 1 puff INH BID 10/07/16 [History Confirmed 10/07/16 Last Taken Unknown] Baclofen [Lioresal] 20 mg PO 5XD 10/08/16 [History Confirmed 10/08/16 Last Taken Unknown] Cyclobenzaprine HCl 10 mg PO TID PRN 10/08/16 [History Confirmed 10/08/16 Last Taken Unknown] Diazepam [Valium] 5 mg PO DAILY PRN 10/08/16 [History Confirmed 10/08/16 Last Taken Unknown] Docusate Sodium [Colace] 200 mg PO DAILY 10/08/16 [History Confirmed 10/08/16 Last Taken Unknown] Gabapentin [Neurontin] 300 mg PO HS 10/08/16 [History Confirmed 10/08/16 Last Taken Unknown] Gabapentin [Neurontin] 300 mg PO TID 10/08/16 [History Confirmed 10/08/16 Last Taken Unknown] Oxybutynin Chloride [Ditropan] 5 mg PO BID 10/08/16 [History Confirmed 10/08/16 Last Taken Unknown] QUEtiapine FUMARATE [Seroquel] 25 mg PO BID 10/08/16 [History Confirmed Last Taken Unknown] Venlafaxine HCl [Venlafaxine HCl ER] 75 mg PO DAILY 10/08/16 [History Confirmed 10/08/16 Last Taken Unknown] Venlafaxine HCl [Venlafaxine HCl ER] 150 mg PO DAILY 10/08/16 [History Confirmed 10/08/16 Last Taken Unknown] oxyCODONE HCL [Roxicodone] 10 mg PO Q6H 10/08/16 [History Confirmed 10/08/16 Last Taken Unknown] oxyCODONE [OxyCONTIN] 20 mg PO DAILY 10/08/16 [History Confirmed 10/08/16 Last Taken Unknown] Active Medications Acetaminophen (Tylenol) 650 mg PO Q6HP PRN PRN Reason: PAIN/FEVER > 101 Last Admin: 10/08/16 11:35 Dose: 650 mg Acetaminophen/Hydrocodone Bitart ([place] 5/325mg) 1 tab PO Q4HP PRN PRN Reason: Pain Last Admin: 10/08/16 18:57 Dose: 1 tab Albuterol Sulfate (Ventolin) 2.5 mg NEB Q2HP PRN PRN Reason: Shortness Of Breath Albuterol/Ipratropium (Duoneb) 3 ml NEB Q6HRT [facility] Last Admin: 10/09/16 13:41 Dose: 3 ml Baclofen (Lioresal) 20 mg PO 5XD [facility] Last Admin: 10/09/16 12:23 Dose: Not Given Cyclobenzaprine HCl (Flexeril) 10 mg PO TID PRN PRN Reason: Muscle Spasm Last Admin: 10/09/16 09:42 Dose: 10 mg Diazepam (Valium) 5 mg PO TIDP PRN PRN Reason: Muscle Spasm Docusate Sodium (Colace) 100 mg PO BID PRN PRN Reason: Constipation Last Admin: 10/09/16 09:42 Dose: 100 mg Gabapentin (Neurontin) 300 mg PO TID [facility] Last Admin: 10/09/16 09:42 Dose: 300 mg Heparin Sodium (Porcine) (Heparin) 5,000 unit SQ Q12 [facility] Last Admin: 10/09/16 09:43 Dose: 5,000 unit Piperacillin Sod/Tazobactam (Sod 3.375 gm/ Dextrose) 50 mls @ 100 mls/hr IV Q6 [facility] Last Admin: 10/09/16 12:30 Dose: 100 mls/hr Vancomycin HCl 1,000 mg/ (Sodium Chloride) 250 mls @ 250 mls/hr IV Q12H [facility] Last Admin: 10/09/16 06:06 Dose: 250 mls/hr Magnesium Hydroxide (Milk Of Magnesia) 30 ml PO DAILYP PRN PRN Reason: Constipation Naloxone HCl (Narcan) 0.1 mg IV Q2MIN PRN PRN Reason: Opiate Reversal Ondansetron HCl (Zofran) 4 mg IV Q6HP PRN PRN Reason: Nausea And Vomiting Oxybutynin Chloride (Ditropan) 5 mg PO BID [facility] Last Admin: 10/09/16 09:42 Dose: 5 mg Oxycodone HCl (Oxycontin) 20 mg PO DAILY [facility] Last Admin: 10/09/16 09:43 Dose: 20 mg Oxycodone HCl (Roxicodone) 10 mg PO Q6HP PRN PRN Reason: Pain Last Admin: 10/08/16 14:48 Dose: 10 mg Potassium Chloride (Klor-Con) 40 meq PO BID [facility] Stop: 10/09/16 21:01 Last Admin: 10/09/16 09:46 Dose: 40 meq Psyllium Hydrophilic Mucilloid (Metamucil) 6 gm PO DAILY [facility] Last Admin: 10/09/16 09:45 Dose: 6 gm Quetiapine Fumarate (Seroquel) 25 mg PO HS PRN PRN Reason: Sleep Sodium Chloride (Saline Flush) 10 ml IV Q8 [facility] Last Admin: 10/09/16 05:29 Dose: Not Given Venlafaxine HCl (Effexor Xr) 225 mg PO DAILY [facility] Last Admin: 10/09/16 09:42 Dose: 225 mg Medical - DS: Hosp Hospital course: Ms. Campos is a 61 year old female who is a paraplegic, admitted to the hospital for sepsis and pneumonia, She was transferred here from [place] in [place]. The patient presented to the ER in [place] with symptoms of cough and fever, her X ray chest was suggestive of PNA and the patient was admitted there for further management. She unfortunately also has a baclofen pump which is managed by pain clinic here in [facility]. The patients baclofen pump was going to run out, the patient therefore was transferred to [facility] so that [facility] could refill the pump, which they did on the 10/07/16 The pateint continued to remain febrile and was treated for pneumonia with IV vancomycin and zosyn. The patient repeat x ray showed significant atelectasis on the right side, given that the patient was persistently febrile, the patient had a CT Scan done which showed fibrosis and volume loss of the right side, also a mass on the right lung approx 4 cms partially occluding the bronchus. The patients fever eventually subsided with antibiotics I reviewed the findings with the patient as well ad the patients primary care provider. The patient will need a bronchoscopy as well as biopsy by pulmonary. Unfortunately we do not have pulmonary service in the [place], we will make a referral for the patient to [facility] for pulmonary evaluation, hopefully they will be able to get the patient in within 2-3 weeks for a evaluation. 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 Will need to be followed up by Primary provider/ local wound care physician. We will try to arrange for a wound care nurse. The rest of the patients condition was unchanged and not changes in home medications done, except addition of a antibiotic (augmentin) x 5 additional days. The discharge summary is being done on 10/09/16, the patient unfortunately could not be discharged today as there was no ambulance to take the patient back home. ([address]), the ambulance plans to pickup the patient early in the morning tomorrow at 6 am. - Time Spent with Patient Total time spent providing and/or coordinating discharge services: Greater than 30 minutes Medical - DS: Exam - Constitutional Vitals: Vital Signs Temp Pulse Pulse Resp BP Pulse Ox 10/09/16 13:42 94 10/09/16 12:00 97.5 F L 52 L 18 97/63 93 10/09/16 07:42 97.1 F L 54 L 18 94/50 93 10/09/16 06:48 61 10 L 90 10/09/16 06:47 90 10/09/16 03:44 98.9 F 75 18 131/78 98 10/08/16 23:30 97.7 F 64 18 120/69 90 10/08/16 20:00 98.4 F 80 18 98/58 92 10/08/16 19:36 76 16 10/08/16 19:30 93 10/08/16 19:29 93 10/08/16 15:48 98.7 F 74 20 98/43 92 10/08/16 14:14 85 18 Intake and Output 10/08/16 10/09/16 10/09/16 21:59 05:59 13:59 Intake Total 2790 / 2790 500 / 500 380 / 380 Output Total 800 / 800 2200 / 2200 Balance 1989 / 1989 -1700 / -1700 380 / 380 Intake: IV 1310 / 1310 100 / 100 Dextrose 5% in Water 50 50 / 50 100 / 100 ml @ 100 mls/hr IV Q6 [facility] with Zosyn 3.375 gm Rx#: [id number] Potassium Chloride 20 Meq 1010 / 1010 In Sodium Chloride 0.45% 1,000 ml @ 100 mls/hr IV .Q10H6M TONY Rx#: [id number] Sodium Chloride 0.9% 250 250 / 250 ml @ 250 mls/hr IV Q12H [facility]ON[facility] with Vancomycin 1,000 mg Rx#:[id number] Oral 1480 / 1480 400 / 400 380 / 380 Output: Urine Catheter Amount 800 / 800 2200 / 2200 Other: Meal Dinner Breakfast Percent of Meal Consumed 50% 100% Feeding Ability Independent # Bowel Movements 2 Weight 167 lb 8 oz - Head Head exam: Present: atraumatic, normal inspection, normocephalic - Eye Eye exam: Present: normal appearance. Absent: periorbital swelling, periorbital tenderness, scleral icterus - ENT ENT exam: Present: mucous membranes moist, normal external ear exam - Respiratory Respiratory exam: Present: normal respiratory exam (decreased air entry on the right base. ) - Cardiovascular Cardiovascular exam: Present: normal rate and rhythm, +S1, +S2 - GI/Abdominal GI/Abdominal exam: Present: normal bowel sounds. Absent: mass, organomegaly, rigid, tenderness - Neurological Exam Neurological exam: Present: alert, oriented X3. Absent: CN II-XII intact ( paraplegic c5-7, incomplete, albe to move her left leg, ) - Psychiatric Psychiatric exam: Absent: agitated Medical - DS: Data Labs on day of discharge: Labs from last 24 hours 10/09/16 10/09/16 04:25 04:25 WBC 2.8 L RBC 2.86 L Hgb 8.2 L Hct 26.0 L MCV 91.0 MCH 28.5 MCHC 31.3 RDW 15.9 H Plt Count 133 L MPV 9.6 Gran % 35.4 L Lymph % (Auto) 52.8 H [place] % (Auto) 8.2 Eos % (Auto) 3.2 Baso % (Auto) 0.4 Gran # 1.0 L Lymph # 1.5 [place] # 0.2 Eos # 0.1 Baso # 0 Sodium 143 Potassium 3.0 L Chloride 106 Carbon Dioxide 25 Anion Gap 12.0 BUN 2 L Creatinine 0.4 L GFR Calculation 113 Glucose 88 Uric Acid 1.9 L Calcium 8.6 Phosphorus 3.3 Magnesium 1.8 Total Bilirubin 0.6 Direct Bilirubin < 0.2 GGT 68 H AST 18 ALT 12 Alkaline Phosphatase 83 Lactate Dehydrogenase 238 Total Protein 5.7 L Albumin 2.8 L Globulin 2.9 Albumin/Globulin Ratio 1.0 Triglycerides 67 Preliminary micro results at discharge 10/07/16 17:28 Wound Culture - Preliminary Hip - Left Medical - DS: A/P - Patient/Caregiver Discharge Instructions Activity: resume usual activities as tolerated, wear oxygen at night Diet: Regular Diet Additional Instructions: Woundcare: Clean wound with normal saline. Apply betadine into wound and around edges. Cover with AMD gauze. change daily Follow up with primary care physician in 7 days Follow up with [facility]lmonary is consultant in 2-3 weeks for evaluation of lung mass. - Follow up Plan Disposition: Home Health Service Prognosis: Undetermined Rehab Potential: Fair I certify that the patient requires SNF services: No Overall status at discharge: patient is progressing back to baseline Medical - DS: Qual - VTE Deep Vein Thrombosis/Pulmonary Embolism Present on Admission: No
--- NOTE | 2016-10-09 17:38 | General Surgery Progress Note ---
Subjective Patient reports: other (Reviewed Dr. Boston's note. CXR / CT chest reports noted. Left hip decubitus is unchanged, ) Narrative: Note initiated : 10/09/16 at 5:35 pm Service Date, if different from initiated Date: [] Patient: Chaparrita Campos 61 y/o F admitted on 10/06/16 for Aspiration Pneumonia and Fever. Chief Complaint: [] Objective Temp Pulse Resp BP Pulse Ox 97.8 F 73 18 120/87 95 10/09/16 16:00 10/09/16 16:00 10/09/16 16:00 10/09/16 16:00 10/09/16 16:00 No fever. VSS. Left hip greater trochanter PU site is clen and dry. To continue with on going care. - Additional Data Intake & Output - Last 24 hours: Intake & Output 10/07/16 10/08/16 10/09/16 10/10/16 05:59 05:59 05:59 05:59 Intake Total 2590 / 2590 5486 / 5486 3840 / 3840 950 / 950 Output Total 5150 / 5150 6750 / 6750 4975 / 4975 1300 / 1300 Balance -2560 / -2560 -1264 / -1264 -1135 / -1135 -350 / -350 Weight 169 lb 170 lb 167 lb 8 oz - Labs 10/09/16 04:25 10/09/16 04:25 Diabetes panel 10/09/16 Range/Units 04:25 Sodium 143 (133-145) mmol/L Potassium 3.0 L (3.3-5.1) mmol/L Chloride 106 (96-108) mmol/L Carbon Dioxide 25 (22-30) mmol/L BUN 2 L (6-20) mg/dl Creatinine 0.4 L (0.6-1.1) mg/dl Glucose 88 (70-105) mg/dL Calcium 8.6 (8.6-10.4) mg/dl AST 18 (0-37) U/l ALT 12 (0-40) U/l Alkaline Phosphatase 83 (39-117) U/L Total Protein 5.7 L (5.9-8.4) gm/dL Albumin 2.8 L (3.2-5.2) gm/dL Triglycerides 67 (<150) mg/dl Calcium panel 10/09/16 Range/Units 04:25 Calcium 8.6 (8.6-10.4) mg/dl Phosphorus 3.3 (2.7-4.5) mg/dL Albumin 2.8 L (3.2-5.2) gm/dL Pituitary panel 10/09/16 Range/Units 04:25 Sodium 143 (133-145) mmol/L Potassium 3.0 L (3.3-5.1) mmol/L Chloride 106 (96-108) mmol/L Carbon Dioxide 25 (22-30) mmol/L BUN 2 L (6-20) mg/dl Creatinine 0.4 L (0.6-1.1) mg/dl Glucose 88 (70-105) mg/dL Calcium 8.6 (8.6-10.4) mg/dl Adrenal panel 10/09/16 Range/Units 04:25 Sodium 143 (133-145) mmol/L Potassium 3.0 L (3.3-5.1) mmol/L Chloride 106 (96-108) mmol/L Carbon Dioxide 25 (22-30) mmol/L BUN 2 L (6-20) mg/dl Creatinine 0.4 L (0.6-1.1) mg/dl Glucose 88 (70-105) mg/dL Calcium 8.6 (8.6-10.4) mg/dl Total Bilirubin 0.6 (0.0-1.0) mg/dL AST 18 (0-37) U/l ALT 12 (0-40) U/l Alkaline Phosphatase 83 (39-117) U/L Total Protein 5.7 L (5.9-8.4) gm/dL Albumin 2.8 L (3.2-5.2) gm/dL Medical - PN: A/P - Time Spent With Patient Total time spent is greater than 50% in coordination of care (as documented) at patient's floor/unit and/or counseling patient: Wound care reviewed with patient. Need to OFF load this area and change position q 2 hrly. Furhter management or wound sby Local Facility Clinician and / or soil fertility extension specialist. Will sign off at this time. less than 15 minutes (Stable for transfer to [facility], [place] from wound service point of view.) (1) Decubitus ulcer, hip, left, unstageable Status: Chronic Current Visit: Yes
[2016-10-09] MEDS: oxyCODONE HCL 5 MG TABLET PO PRN (21:00)
[2016-10-10] MEDS: PIPERACILLIN SODIUM/TAZOBACTAM 3.375 GM in DEXTROSE 5% IN WATER 50 ML IV SCH ×2 (00:36→05:38)
[2016-10-10] MEDS: IPRATROPIUM/ALBUTEROL 3 ML AMPUL.NEB NEB SCH (01:11)
[2016-10-10] MEDS: 0.9 % SODIUM CHLORIDE 10 ML SYRINGE IV SCH (05:38)
[2016-10-10] MEDS: VANCOMYCIN 1,000 MG in 0.9 % SODIUM CHLORIDE 250 ML IV SCH (05:38)
== END 2016-10-10 06:37 | disposition home health service (06) | DRG 177 ==
LOC: MEDSUR 13:40
PROVIDERS: ADMIT Internal Medicine; ATTEND Internal Medicine